=== PATIENT | male | born 1980 | race Caucasian/White ===

== ENCOUNTER 2022-11-29 01:28 | Emergency (ER) | payer OTHER ==
[~2022-11-29] VITALS: Ht 182.9 cm; Wt 72.6 kg
--- NOTE | 2022-11-29 01:51 | NUR ---
BIBS C/O L TESTICULAR SWELLING/PAIN RADIA. TO ABD X 2DAYS. DENIES TRAUMA. HAS BEEN TAKING ANTBX FROM [place] "CEFALTROX" QID 500MG TAB. PATIENT IS AAOX4. ABLE TO MAKE NEEDS KNOWN. PLACED COMFORTABLY IN BED. VITALS CHECKED.
[2022-11-29 01:55] VITALS: BP 174/72
--- NOTE | 2022-11-29 02:27 | NUR ---
CELSA CÁRDENAS AT BEDSIDE
--- NOTE | 2022-11-29 04:03 | NUR ---
SCROTAL EXAM DONE BY DR ELAM WITH RN AURE
--- NOTE | 2022-11-29 04:03 | NUR ---
URINE SPECIMEN SENT TO LAB
[2022-11-29] MEDS ORDERED: DOXY100C2 PO (04:05)
[2022-11-29] MEDS ORDERED: CEFTRIAXONE 500 MG VIAL ONE (04:06)
[2022-11-29] MEDS ORDERED: IBUPROFEN 600 MG TABLET ONE (04:06)
[2022-11-29] MEDS ORDERED: DOXYCYCLINE HYCLATE (100 MG) 100 MG TABLET ONE (04:06)
[2022-11-29] MEDS ORDERED: LIDOCAINE 1% INJ 50 ML MDV IJ ONE (04:07)
[2022-11-29] MEDS: CEFTRIAXONE 500 MG VIAL IM ONE (04:13)
[2022-11-29] MEDS: IBUPROFEN 600 MG TABLET PO ONE (04:13)
[2022-11-29] MEDS: DOXYCYCLINE HYCLATE (100 MG) 100 MG TABLET PO ONE (04:13)
[2022-11-29 04:35] LABS: BILIRUBIN,URINE NEGATIVE (NEGATIVE); COLOR,URINE YELLOW (YELLOW); LEUKOCYTE ESTERASE ,URINE 1+ (NEGATIVE); NITRITE, URINE NEGATIVE (NEGATIVE); PROTEIN,URINE TRACE mg/dl (NEGATIVE); UGLUCOSE NEGATIVE (NEGATIVE); UROBILINOGEN,URINE 0.2 EU/dL (0.2)
[2022-11-29 04:39] LABS: BACTERIA,URINE Few /HPF (None Seen); SQUAMOUS EPITHELIAL CELL,UR Few /HPF (None Seen)
--- NOTE | 2022-11-29 05:27 | NUR ---
CELSA CÁRDENAS CAME BACK TO PERFORM ANOTHER PROCEDURE
--- NOTE | 2022-11-29 07:14 | NUR ---
REPORT GIVEN TO ARISTIDES TANG
== END 2022-11-29 07:20 | disposition home or self-care (01) ==
LOC: ER 01:30
DX: N45.3 Epididymo-orchitis (principal); N50.812 Left testicular pain; Z60.2 Problems related to living alone; F17.200 Nicotine dependence, unspecified, uncomplicated; Z79.899 Other long term (current) drug therapy
CPT/HCPCS: 99284; 96372; 87086; 81001; 87491; 87591; 76870 ×2; J3490; J0696

== ENCOUNTER 2023-02-10 18:01 | Emergency (ER) | payer OTHER ==
[~2023-02-10] VITALS: Ht 182.9 cm; Wt 73.0 kg
[~2023-02-10 18:01] MED LIST: DOXY100C2 PO
--- NOTE | 2023-02-10 19:00 | NUR ---
URINE COLLECTED AND SENT TO LAB
[2023-02-10 19:24] LABS: BILIRUBIN,URINE 1+ (NEGATIVE); COLOR,URINE YELLOW (YELLOW); LEUKOCYTE ESTERASE ,URINE 1+ (NEGATIVE); NITRITE, URINE NEGATIVE (NEGATIVE); PROTEIN,URINE 1+ mg/dl (NEGATIVE); UGLUCOSE NEGATIVE (NEGATIVE); UROBILINOGEN,URINE 0.2 EU/dL (0.2)
--- NOTE | 2023-02-10 19:24 | NUR ---
REPORT RECEIVED FROM ARISTIDES JIMENEZ
--- NOTE | 2023-02-10 19:25 | NUR ---
CELSA OF SCROTUM DONE AT BEDSIDE
[2023-02-10 19:35] LABS: BACTERIA,URINE 1+ /HPF (None Seen); RBC,URINE 21-50 /HPF (0-2); SQUAMOUS EPITHELIAL CELL,UR Few /HPF (None Seen); WBC,URINE 51-80 /HPF (0-3)
[2023-02-10] MEDS ORDERED: DOXY100T2 PO (20:29)
[2023-02-10] MEDS ORDERED: CEFTRIAXONE 500 MG VIAL IM ONE (20:30)
[2023-02-10] MEDS ORDERED: CEFTRIAXONE 500 MG VIAL ONE (20:33)
[2023-02-10] MEDS ORDERED: LIDOCAINE /MPF 1% VIAL 5 ML VIAL ONE (20:33)
[2023-02-10 20:45] VITALS: BP 118/79
--- NOTE | 2023-02-10 20:45 | NUR ---
PT OK TO DISCHARGE PER DR CRUZ. Patient discharged to home in stable condition. Written and verbal after care instructions given. Patient verbalizes understanding of instruction.Patient is awake and alert to self, day, and place. PT ambulatory with a steady gait
== END 2023-02-10 20:46 | disposition home or self-care (01) ==
LOC: ER 18:06
DX: N45.3 Epididymo-orchitis (principal); F17.200 Nicotine dependence, unspecified, uncomplicated; Z60.2 Problems related to living alone; Z79.899 Other long term (current) drug therapy
CPT/HCPCS: 99285; 96372; 76870; 87086; 81001; J0696; J3490

== ENCOUNTER 2024-06-24 10:11 | Emergency (ER) | payer OTHER ==
[~2024-06-24] VITALS: Ht 177.8 cm; Wt 74.8 kg
[~2024-06-24 10:11] MED LIST changes: +DOXY100T2 PO
[2024-06-24 10:34] VITALS: BP 140/85; TEMP 98.7; O2SAT 98
[2024-06-24] MEDS: GUAIFENESIN/D-METHORPHAN HB 5 ML UDC PO ONE (11:00)
[2024-06-24] MEDS ORDERED: ACETAMINOPHEN 325 MG TABLET ONE (11:03)
[2024-06-24] MEDS ORDERED: GUAIFENESIN/D-METHORPHAN HB 5 ML UDC ONE (11:03)
[2024-06-24] MEDS: ACETAMINOPHEN 325 MG TABLET PO ONE (11:11)
[2024-06-24] MEDS ORDERED: BENZ-13 PO (15:17)
== END 2024-06-24 15:26 | disposition home or self-care (01) ==
LOC: ER 10:27
DX: J02.9 Acute pharyngitis, unspecified (principal); R05.9 Cough, unspecified; R09.81 Nasal congestion; F17.200 Nicotine dependence, unspecified, uncomplicated; Z60.2 Problems related to living alone; Z20.822 Contact with and (suspected) exposure to COVID-19
CPT/HCPCS: 71046

== ENCOUNTER 2025-06-29 23:27 | Emergency (ER) | payer MEDICAID, OTHER ==
[~2025-06-29] VITALS: Ht 180.3 cm; Wt 83.9 kg
[~2025-06-29 23:27] MED LIST changes: +BENZ-13 PO
[2025-06-30] MEDS ORDERED: DIPH25CA83 PO (00:20)
[2025-06-30] MEDS ORDERED: PRED50TA PO (00:20)
[2025-06-30] MEDS ORDERED: CEPH-570 PO (00:20)
[2025-06-30] MEDS ORDERED: CEPHALEXIN MONOHYDRATE 500 MG CAPSULE PO ONE (00:23)
[2025-06-30] MEDS: DIPHENHYDRAMINE HCL 12.5 MG/5 ML UDC PO ONE (00:26)
[2025-06-30] MEDS: CEPHALEXIN MONOHYDRATE 500 MG CAPSULE PO ONE (00:26)
[2025-06-30 00:35] VITALS: BP 120/70; TEMP 98; O2SAT 96
== END 2025-06-30 00:35 | disposition home or self-care (01) ==
LOC: ER 23:36
DX: L25.9 Unspecified contact dermatitis, unspecified cause (principal); F17.200 Nicotine dependence, unspecified, uncomplicated; Z79.52 Long term (current) use of systemic steroids; Z60.2 Problems related to living alone; Z79.899 Other long term (current) drug therapy
CPT/HCPCS: 99284; Q0163 ×2; J7512

== ENCOUNTER 2025-10-08 09:50 | Emergency (ER) | payer MEDICAID, OTHER ==
[~2025-10-08] VITALS: Ht 180.3 cm; Wt 74.8 kg
[~2025-10-08 09:50] MED LIST changes: +CEPH-570 PO; +DIPH25CA83 PO; +PRED50TA PO
[2025-10-08 10:39] LABS: PLATELET COUNT (AUTO) 440 K/uL (150-450); RED BLOOD CELL COUNT(AUTO) 4.63 MIL/uL (4.5-6.0); RED CELL DISTRIBUTION WIDTH 13.1 % (11.5-15.0); WHITE BLOOD COUNT (AUTO) 12.1 K/uL (4.3-11.0)
[2025-10-08 10:45] LABS: CALCIUM, SERUM 9.5 mg/dL (8.5-10.1); CREATININE 1.0 mg/dL (0.6-1.3); SODIUM SERUM 137.0 mmol/L (136-145); UREA NITROGEN, BLOOD 23.0 mg/dL (7-18)
[2025-10-08] MEDS ORDERED: CEFTRIAXONE 1GM BAG (ER ONLY) 0 ML IV ONE (11:04)
[2025-10-08] MEDS: CEFTRIAXONE 1 G in IV D5W 50 ML IV ONE (11:21)
[2025-10-08] MEDS: IV NS 0.9% 1,000 ML BAG IV ONE (11:21)
[2025-10-08 11:24] VITALS: BP 126/73; TEMP 98.4; O2SAT 99
== END 2025-10-08 11:24 | disposition left against medical advice (07) ==
LOC: ER 09:55
DX: L03.115 Cellulitis of right lower limb (principal); F17.200 Nicotine dependence, unspecified, uncomplicated; Z60.2 Problems related to living alone
CPT/HCPCS: 99284; 93971; 73630; 85025; 80048; 36415; J0696; J7060; J7040